=== PATIENT | male | born 1960 | race Caucasian/White ===

== ENCOUNTER 2017-10-24 23:29 | Emergency (ER) | payer SELFPAY ==
[2017-10-24] MEDS ORDERED: Sodium Chloride 0.9% 2.5 ML Syringe FLUSH PRN (23:59)
[2017-10-24] MEDS ORDERED: Sodium Chloride 0.9% 10 ML Syringe FLUSH PRN (23:59)
[2017-10-24] MEDS ORDERED: Ketorolac 30 MG/ML SDV IVPUSH ONE (23:59)
[2017-10-24] MEDS ORDERED: Sodium Chloride 0.9% 1,000 ML IV ONE (23:59)
--- NOTE | 2017-10-25 00:03 | EDM.PDOC ---
ED HPI GENERAL MEDICAL PROBLEM - General Chief Complaint: Abdominal Pain Stated Complaint: PT HAS STOMACH AND BACK PAINS Time Seen by Provider: 10/24/17 23:37 - History of Present Illness INITIAL COMMENTS - FREE TEXT/NARRATIVE: HISTORY AND PHYSICAL: History of present illness: The patient is a 56-year-old male who presents with a history of dark colored urine that he passed yesterday several times which has since cleared and right lower abdominal pain that radiates to his right lower back and his groin that started today. The patient says that it wasn't a sudden onset but he came on relatively quickly and has been persistent. He has had no fevers chills chest pain or shortness of breath no nausea vomiting or bowel changes such as diarrhea or black or bloody stools. His urine has been clear all day today and he has not had any dysuria frequency or urgency. The patient describes the pain as deep and common of burning. He's never had any abdominal surgery and has no history. He has not taken anything other than some Aleve for the pain earlier today which he did not feel helped. He says he's been eating and drinking and trying to hydrate. He has no discrete testicular pain or swelling. Patient tells me he had an inflamed liver many years ago was never told that he did discrete liver problem and at that time he was told it might be vasculitis. He takes no current medications for any GI problems. Patient denies alcohol use and is a smoker. Review of systems: As per history of present illness and below otherwise all systems reviewed and negative. Past medical history: As per history of present illness and as reviewed below otherwise noncontributory. Surgical history: As per history of present illness and as reviewed below otherwise noncontributory. Social history: No reported history of drug or alcohol abuse. Family history: As per history of present illness and as reviewed below otherwise noncontributory. Physical exam: Gen.: Well-developed well-nourished thin man who is nontoxic and vital signs have been reviewed by me. Patient moves about the ED without distress. HEENT: Atraumatic, normocephalic, negative for conjunctival pallor or scleral icterus, mucous membranes moist, throat clear, neck supple, nontender, trachea midline. Lungs: Clear to auscultation, breath sounds equal bilaterally, chest nontender. Heart: S1S2, regular rate and rhythm no overt murmurs Abdomen: Soft, nondistended, there is some mild tenderness on deep palpation in the right lower abdominal area without rebound or guarding and bowel sounds are slightly hypoactive. The patient is somewhat jumpy throughout the exam with any contact that they make. Negative for masses or hepatosplenomegaly. Negative for costovertebral tenderness. Pelvis: Stable nontender. Genitourinary: The testicles are descended and there is no discrete right testicular swelling appreciated but there is some inguinal lymphadenopathy which is mobile and minimally tender. Rectal: Deferred. Extremities: Atraumatic, negative for cords or calf pain. Neurovascular unremarkable. Neuro: Awake, alert, oriented. Cranial nerves II through XII unremarkable. Cerebellum unremarkable. Motor and sensory unremarkable throughout. Exam nonfocal. Diagnostics: UA urine culture CBC CMP amylase lipase CT scan of the abdomen and pelvis Therapeutics: IV, IV fluids, Toradol Impression: Right abdominal pain stable, prostatomegaly Definitive disposition and diagnosis as appropriate pending reevaluation and review of above. Abdomen Pain Score (Numeric/FACES): 10 - Related Data Allergies Allergy/AdvReac Type Severity Reaction Status Date / Time Penicillins Allergy Anaphylactic Verified 10/24/17 23:46 Shock Home Meds: Home Meds . [No Known Home Meds] 10/24/17 [History] Past Medical History HEENT History: Reports: None Cardiovascular History: Reports: None Respiratory History: Reports: COPD Gastrointestinal History: Reports: None Genitourinary History: Reports: None Musculoskeletal History: Reports: None Neurological History: Reports: MS Psychiatric History: Reports: None Endocrine/Metabolic History: Reports: None Hematologic History: Reports: None Immunologic History: Reports: None Oncologic (Cancer) History: Reports: None Dermatologic History: Reports: Other (See Below) Other Dermatologic History: Vasculitis - Infectious Disease History Infectious Disease History: Reports: None - Past Surgical History Head Surgeries/Procedures: Reports: None HEENT Surgical History: Reports: Naso-Sinus Surgery Social & Family History - Family History Family Medical History: Noncontributory - Tobacco Use Smoking Status *Q: Current Every Day Smoker Years of Tobacco use: 40 Packs/Tins Daily: 1 - Caffeine Use Caffeine Use: Reports: Coffee - Recreational Drug Use Recreational Drug Use: No ED ROS GENERAL - Review of Systems Review Of Systems: ROS reveals no pertinent complaints other than HPI. ED EXAM, GENERAL - Physical Exam Exam: See Below (CT dictation) Course - Vital Signs Last Recorded V/S: Last Vital Signs Temp 37.1 C 10/24/17 23:47 Pulse 88 10/24/17 23:47 Resp 18 10/24/17 23:47 BP 146/89 H 10/24/17 23:47 Pulse Ox 97 10/24/17 23:47 - Orders/Labs/Meds Orders: Active Orders 24 hr Category Date Time Status Abdomen Pelvis w Cont [CT] Stat Exams 10/24/17 23:59 Taken CULTURE URINE [RM] Stat Lab 10/25/17 00:07 Ordered Sodium Chloride 0.9% [Saline Flush] Med 10/24/17 23:59 Active 10 ml FLUSH ASDIRECTED PRN Sodium Chloride 0.9% [Saline Flush] Med 10/24/17 23:59 Active 2.5 ml FLUSH ASDIRECTED PRN Saline Lock Insert [OM.PC] Stat Oth 10/24/17 23:58 Ordered Medication Orders Sodium Chloride (Saline Flush) 10 ml FLUSH ASDIRECTED PRN PRN Reason: Keep Vein Open Last Admin: 10/25/17 00:04 Dose: 10 ml Sodium Chloride (Saline Flush) 2.5 ml FLUSH ASDIRECTED PRN PRN Reason: Keep Vein Open Last Admin: 10/25/17 00:05 Dose: 2.5 ml Labs: Laboratory Tests 10/24/17 10/24/17 10/24/17 Range/Units 23:51 23:51 23:51 WBC 12.84 H (4.0-11.0) K/uL RBC 4.91 (4.50-5.90) M/uL Hgb 16.0 (13.0-17.0) g/dL Hct 46.0 (38.0-50.0) % MCV 93.7 (80.0-98.0) fL MCH 32.6 H (27.0-32.0) pg MCHC 34.8 (31.0-37.0) g/dL RDW Std Deviation 44.6 (28.0-62.0) fl RDW Coeff of Lila 13 (11.0-15.0) % Plt Count 314 (150-400) K/uL MPV 9.00 (7.40-12.00) fL Neut % (Auto) 57.7 (48.0-80.0) % Lymph % (Auto) 29.7 (16.0-40.0) % Tate % (Auto) 9.1 (0.0-15.0) % Eos % (Auto) 3.1 (0.0-7.0) % Baso % (Auto) 0.4 (0.0-1.5) % Neut # (Auto) 7.4 H (1.4-5.7) K/uL Lymph # (Auto) 3.8 H (0.6-2.4) K/uL Tate # (Auto) 1.2 H (0.0-0.8) K/uL Eos # (Auto) 0.4 (0.0-0.7) K/uL Baso # (Auto) 0.1 (0.0-0.1) K/uL Nucleated RBC % 0.0 /100WBC Nucleated RBCs # 0 K/uL Sodium 136 (136-146) mmol/L Potassium 3.9 (3.5-5.1) mmol/L Chloride 105 (98-110) mmol/L Carbon Dioxide 21 (21-31) mmol/L BUN 11 (6.0-23.0) mg/dL Creatinine 0.9 (0.6-1.5) mg/dL Est Cr Clr Drug Dosing 93.83 mL/min Estimated GFR (MDRD) > 60.0 ml/min Glucose 87 (60-110) mg/dL Calcium 9.0 (8.8-10.8) mg/dL Total Bilirubin 0.4 (0.1-1.5) mg/dL AST 19 (5-40) IU/L ALT 25 (8-54) IU/L Alkaline Phosphatase 86 (40-150) Total Protein 7.2 (6.0-8.0) g/dL Albumin 4.3 (3.5-5.0) g/dL Globulin 2.9 (2.0-3.5) g/dL Albumin/Globulin Ratio 1.5 (1.3-2.8) Amylase 59 (10-90) U/L Lipase 36 (7-80) U/L Urine Color YELLOW Urine Appearance CLEAR Urine pH 7.0 (5.0-8.0) Ur Specific [place] <= 1.005 (1.001-1.035) Urine Protein NEGATIVE (NEGATIVE) mg/dL Urine Glucose (UA) NEGATIVE (NEGATIVE) mg/dL Urine Ketones NEGATIVE (NEGATIVE) mg/dL Urine Occult Blood NEGATIVE (NEGATIVE) Urine Nitrite NEGATIVE (NEGATIVE) Urine Bilirubin NEGATIVE (NEGATIVE) Urine Urobilinogen 0.2 (<2.0) EU/dL Ur Leukocyte Esterase NEGATIVE (NEGATIVE) Urine RBC 0-1 (0-2/HPF) Urine WBC 0-1 (0-5/HPF) Ur Epithelial Cells RARE (NONE-FEW) Urine Bacteria RARE (NEGATIVE) Meds: Medications Generic Name Dose Route Start Last Admin Trade Name Freq PRN Reason Stop Dose Admin Sodium Chloride 10 ml 10/24/17 23:59 10/25/17 00:04 Saline Flush FLUSH 10 ml ASDIRECTED PRN Administration Keep Vein Open Sodium Chloride 2.5 ml 10/24/17 23:59 10/25/17 00:05 Saline Flush FLUSH 2.5 ml ASDIRECTED PRN Administration Keep Vein Open Discontinued Medications Generic Name Dose Route Start Last Admin Trade Name Freq PRN Reason Stop Dose Admin Sodium Chloride 1,000 mls @ 999 mls/hr 10/24/17 23:59 10/25/17 00:04 Normal Saline IV 10/25/17 00:59 999 mls/hr STAT ONE Administration Iopamidol 100 ml 10/25/17 01:04 10/25/17 01:05 Isovue Multipack-370 (76%) IVPUSH 10/25/17 01:05 100 ml ONETIME STA Administration Ketorolac Tromethamine 30 mg 10/24/17 23:59 10/25/17 00:04 Toradol IVPUSH 10/25/17 00:00 30 mg ONETIME ONE Administration Departure - Departure Time of Disposition: 02:14 Disposition: Home, Self-Care 01 Condition: Good Clinical Impression: Prostate enlargement Abdominal pain Qualifiers: Abdominal location: unspecified location Qualified Code(s): R10.9 - Unspecified abdominal pain - Discharge Information Referrals: PCP,None [Primary Care Provider] - Forms: ED Department Discharge Additional Instructions: The following information is given to patients seen in the emergency department who are being discharged to home. This information is to outline your options for follow-up care. We provide all patients seen in our emergency department with a follow-up referral. The need for follow-up, as well as the timing and circumstances, are variable depending upon the specifics of your emergency department visit. If you don't have a primary care physician on staff, we will provide you with a referral. We always advise you to contact your personal physician following an emergency department visit to inform them of the circumstance of the visit and for follow-up with them and/or the need for any referrals to a consulting specialist. The emergency department will also refer you to a specialist when appropriate. This referral assures that you have the opportunity for followup care with a specialist. All of these measure are taken in an effort to provide you with optimal care, which includes your followup. Under all circumstances we always encourage you to contact your private physician who remains a resource for coordinating your care. When calling for followup care, please make the office aware that this follow-up is from your recent emergency room visit. If for any reason you are refused follow-up, please contact the [facility] emergency department at and ask to speak to the emergency department charge nurse. [facility] Primary care- Internal Medicine and Family [place] [id number] [place] [address] [facility] Specialty care-Neurology Professional Building [address] [place] [address], [address] [place] [address] Please push hydration and please contact one of our clinic providers for further care and evaluation and formal evaluation of your prostate. Return to ER as needed and as discussed - My Orders Last 24 Hours: My Active Orders 10/24/17 23:58 Saline Lock Insert [OM.PC] Stat 10/24/17 23:59 Abdomen Pelvis w Cont [CT] Stat Sodium Chloride 0.9% [Saline Flush] 10 ml FLUSH ASDIRECTED PRN Sodium Chloride 0.9% [Saline Flush] 2.5 ml FLUSH ASDIRECTED PRN 10/25/17 00:07 CULTURE URINE [RM] Stat - Assessment/Plan Last 24 Hours: My Active Orders 10/24/17 23:58 Saline Lock Insert [OM.PC] Stat 10/24/17 23:59 Abdomen Pelvis w Cont [CT] Stat Sodium Chloride 0.9% [Saline Flush] 10 ml FLUSH ASDIRECTED PRN Sodium Chloride 0.9% [Saline Flush] 2.5 ml FLUSH ASDIRECTED PRN 10/25/17 00:07 CULTURE URINE [RM] Stat
[2017-10-25 00:47] LABS: CHLORIDE,CL 105 mmol/L (98-110); SODIUM,NA 136 mmol/L (136-146)
[2017-10-25] MEDS ORDERED: Iopamidol 755 MG/ML 500 ML Multipack Bottle IVPUSH STA (01:04)
--- NOTE | 2017-10-27 13:55 | CT ---
EXAM DATE: 10/24/17 PATIENT'S AGE: 56 Patient: HORACIO PANCHAL Facility: [place], [place] Site . Site : [id number] Study: CT Abdomen/Pelvis -10/25/2017 1:27:09 AM Ordering Physician: TONI Final Report: INDICATION: Right lower quadrant pain 18 hours TECHNIQUE: CT Abdomen and pelvis without i.v. contrast. Coronal and sagittal reformats were obtained. CONTRAST: Intravenous COMPARISON: None FINDINGS: Lower chest: Unremarkable. Liver: Unremarkable. Spleen: Unremarkable. Pancreas: Unremarkable. Gallbladder: Unremarkable. Kidney: Mild left renal pelviectasis is present which may be due to an extrarenal pelvis. Adrenal: Unremarkable. Bowel: Unremarkable. The appendix is normal in appearance and size. Vascular: Unremarkable. Lymph: Unremarkable. Peritoneum: Unremarkable. No pneumoperitoneum is seen. No significant ascites is noted. Pelvis: Mild to moderate enlargement of the prostate gland is seen. Soft tissue: Unremarkable. Bone: Unremarkable for age. IMPRESSION: 1. Unremarkable with no CT correlate for the patient`s symptoms seen. Dictated by José Arreguin MD @ 10/25/2017 1:48:38 AM Dictated by: José Arreguin MD @ 10/25/2017 01:48:41 (Electronic Signature) Report Signed by Proxy. [facility]
== END 2017-10-25 02:31 | disposition home or self-care (01) ==
LOC: MW.ED 23:29
DX: N40.0 Benign prostatic hyperplasia without lower urinary tract symptoms (principal); F17.210 Nicotine dependence, cigarettes, uncomplicated; Z88.0 Allergy status to penicillin
CPT/HCPCS: 74177; 80053; 81001; 82150; 83690; 85025; 87086; 96361; 96374; 99284; J1885; J7040; Q9967